=== PATIENT | male | born 1950 | race Caucasian/White ===

== ENCOUNTER 2020-02-05 14:47 | Emergency (ER) | payer MEDICARE ==
[~2020-02-05] VITALS: Ht 193 cm; Wt 117.5 kg
[2020-02-05] MEDS ORDERED: TETANUS/DIPHTHERIA TOX ADULT 0.5 ML SYR ONE (15:27)
[2020-02-05] MEDS ORDERED: TETANUS/DIPHTHERIA TOX ADULT 0.5 ML SYR IM ONE (15:30)
[2020-02-05 15:31] VITALS: BP 159/85
== END 2020-02-05 15:27 | disposition home or self-care (01) ==
LOC: FSED 14:47
DX: S01.81XA Laceration without foreign body of other part of head, initial encounter (principal); W01.0XXA Fall on same level from slipping, tripping and stumbling without subsequent striking against object, initial encounter; Y92.008 Other place in unspecified non-institutional (private) residence as the place of occurrence of the external cause; I10 Essential (primary) hypertension; E78.5 Hyperlipidemia, unspecified; R73.03 Prediabetes
CPT/HCPCS: 90471; 90714; 96372; 99283

== ENCOUNTER 2020-10-10 18:44 | Emergency (ER) | payer MEDICARE ==
[~2020-10-10] VITALS: Ht 195.6 cm; Wt 115.2 kg
[2020-10-10] MEDS ORDERED: AZITHROMYCIN250 MG PO (19:44)
[2020-10-10 20:04] VITALS: BP 154/76
== END 2020-10-10 19:58 | disposition home or self-care (01) ==
LOC: FSED 19:00
DX: J02.0 Streptococcal pharyngitis (principal); J32.9 Chronic sinusitis, unspecified; I10 Essential (primary) hypertension
CPT/HCPCS: 99283

== ENCOUNTER 2022-01-15 16:23 | Emergency (ER) | payer MEDICARE, OTHER ==
[~2022-01-15] VITALS: Ht 193 cm; Wt 115.2 kg
[~2022-01-15 16:23] MED LIST: AZITHROMYCIN250 MG PO
[2022-01-15] MEDS ORDERED: ACETAMINOPHEN 325 MG TAB PO ONE (18:15)
[2022-01-15] MEDS ORDERED: ACETAMINOPHEN 325 MG TAB ONE (18:47)
== END 2022-01-15 18:41 | disposition home or self-care (01) ==
LOC: FSED 16:31
DX: S00.83XA Contusion of other part of head, initial encounter (principal); W01.0XXA Fall on same level from slipping, tripping and stumbling without subsequent striking against object, initial encounter; Y93.01 Activity, walking, marching and hiking; Y92.008 Other place in unspecified non-institutional (private) residence as the place of occurrence of the external cause; E11.65 Type 2 diabetes mellitus with hyperglycemia; I10 Essential (primary) hypertension; E78.5 Hyperlipidemia, unspecified
CPT/HCPCS: 36415; 70450; 70486; 82948; 99284